=== PATIENT | male | born 1990 | race Caucasian/White ===

== ENCOUNTER 2016-09-19 20:36 | Emergency (ER) | payer SELFPAY ==
[~2016-09-19] VITALS: Ht 188 cm; Wt 81.0 kg
[2016-09-19] MEDS ORDERED: AMOXICILLIN500 MG PO (21:26)
[2016-09-19 22:03] VITALS: BP 128/70
== END 2016-09-19 22:10 | disposition home or self-care (01) | DRG 603 ==
LOC: ED 20:36
DX: L03.116 Cellulitis of left lower limb (principal); S71.101A Unspecified open wound, right thigh, initial encounter; W29.8XXA Contact with other powered hand tools and household machinery, initial encounter; Y93.89 Activity, other specified